=== PATIENT | male | born 1995 | race Caucasian/White ===

== ENCOUNTER 2017-01-02 15:36 | Emergency (ER) | payer BC | END 2017-01-02 17:02 | disposition home or self-care (01) | LOC: CED 15:36 → CFTX 15:36 | DX: L05.01 Pilonidal cyst with abscess (principal); J45.909 Unspecified asthma, uncomplicated; Z88.0 Allergy status to penicillin | CPT/HCPCS: 10080; 99282 ==

== ENCOUNTER 2017-01-04 13:34 | Emergency (ER) | payer BC | END 2017-01-04 14:25 | disposition home or self-care (01) | LOC: CFTX 13:34 → CED 13:34 → CFTX 14:19 | DX: Z48.817 Encounter for surgical aftercare following surgery on the skin and subcutaneous tissue (principal); L02.31 Cutaneous abscess of buttock; J45.909 Unspecified asthma, uncomplicated; Z88.0 Allergy status to penicillin | CPT/HCPCS: 99283 ==